=== PATIENT | female | born 2000 | race Caucasian/White ===

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

== ENCOUNTER 2023-08-25 23:25 | Emergency (ER) | payer OTHER ==
--- NOTE | 2023-08-25 23:32 | ED Physician Documentation ---
History of Present Illness - Stated complaint Stated Complaint: - History obtained from History obtained from: Patient - Additonal information Additional information: HPI from patient. Patient c/o LLE focal swelling, redness, tenderness of gradual onset noticed this afternoon, steadily increasing in intensity of pain and area of swelling and redness. Denies h/o similar symptoms. Review of Systems Constitutional: denies: Fever Skin: reports: Lesions Musculoskeletal: reports: Extremity pain. denies: Joint pain, Pain with weight bearing PD PAST MEDICAL HISTORY - Past Medical History Respiratory: Asthma GI: Chronic diarrhea Psych: Depression, Anxiety Derm: Herpes zoster, Eczema - Past Surgical History Past Surgical History: Yes HEENT: Myringotomy (tubes) - Present Medications Home Medications: Ambulatory Orders Medication Instructions Recorded Confirmed Doxycycline [Vibramycin] 100 mg PO BID #14 tablet 08/25/23 hydrOXYzine HCL [Hydroxyzine HCl] 50 mg PO DAILY PRN 08/25/23 08/25/23 - Allergies Allergies/Adverse Reactions: Allergies Allergy/AdvReac Type Severity Reaction Status Date / Time Penicillins Allergy Intermediate Rash Verified 08/25/23 23:37 - Social History Does the pt smoke?: No Smoking Status: Never smoker Does the pt drink ETOH?: Yes Does the pt have substance abuse?: Yes - Immunizations Immunizations are current?: Yes Immunizations: TDAP current <10years - POLST Patient has POLST: No PD ED PE NORMAL - Vitals Vital signs reviewed: Yes - General General: Alert and oriented X 3, No acute distress, Well developed/nourished PD ED PE EXPANDED - Extremities PADMA LE visual: 1 - tenderness (2-3 cm diameter flat erythema, TTP; no fluctuance, no abnormal warmth to touch) Results - Vitals Vitals: Oxygen O2 Source Room air PD Medical Decision Making - ED course Complexity details: considered differential, d/w patient ED course: Atraumatic LLE pain, swelling, and focal erythema. H+P are s/o cellulitis for which she is given 100mg doxycycline PO and prescription provided for one-week course of BID doxycycline. Return precautions reviewed. Departure - Departure Disposition: 01 Home, Self Care Clinical Impression: Cellulitis Condition: Good Instructions: ED Staph Infec Abx Tx Only Prescriptions: Doxycycline [Vibramycin] 100 mg PO BID #14 tablet Comments: You were given the first dose of an antibiotic (doxycycline) in the emergency department and I have electronically submitted a 1-week course of this antibiotic to the [facility] pharmacy in [place]. The cause of the lesion on your leg is not apparent at this time, but, as we discussed, it does have the appearance of cellulitis. Information on cellulitis is contained within this discharge packet. It will likely take 1 or 2 days for the antibiotics have a noticeable effect; the symptoms and the affected area might worsen within those first 1 or 2 days, but should clearly be improving on day three and steadily thereafter. If the symptoms and extent of the lesion is not improving on day 3 or more, contact your primary care provider to arrange for follow-up for reevaluation. Certainly, you can return to the emergency department at any time if you feel the symptoms or extent of the lesion worsen to a concerning extent. Forms: PCP List Discharge Date/Time: 08/26/23 00:14
[2023-08-25 23:43] VITALS: BP 143/86; O2SAT 98
[2023-08-26] MEDS: DOXYCYCLINE 100 MG TABLET PO STA (00:07)
== END 2023-08-26 00:14 | disposition home or self-care (01) ==
LOC: ED 23:25
DX: L03.116 Cellulitis of left lower limb (principal)
CPT/HCPCS: 99282; 99283; A9270

== ENCOUNTER 2024-01-03 14:40 | Emergency (ER) | payer OTHER ==
[2024-01-03 15:53] LABS: HCG UR QUAL NEGATIVE
--- NOTE | 2024-01-03 16:03 | ED Physician Documentation ---
History of Present Illness - Stated complaint Stated Complaint: SOA,SORE THROAT,VOMITING - Chief complaint Chief Complaint: General - Additonal information Additional information: 23-year-old female presents emergency department for sore throat body aches generalized malaise. Patient says she woke up around 5 AM feeling quite unwell sore throat cough and rhinorrhea. She has been having persistent nausea and vomiting no diarrhea she said that she is taken Zofran once with little to no relief and still been having multiple episodes of emesis. Patient says after she starts vomiting she starts hyperventilating which makes her feel shortness of breath she currently now feels no shortness of breath at this breathing comfortably speaking in full sentences without any difficulty. PD PAST MEDICAL HISTORY - Past Medical History Past Medical History: Yes Respiratory: Asthma GI: Chronic diarrhea Psych: Depression, Anxiety, Bipolar disorder Derm: Herpes zoster, Eczema - Past Surgical History Past Surgical History: Yes HEENT: Myringotomy (tubes) - Present Medications Home Medications: Ambulatory Orders Medication Instructions Recorded Confirmed Doxycycline [Vibramycin] 100 mg PO BID #14 tablet 08/25/23 01/03/24 hydrOXYzine HCL [Hydroxyzine HCl] 50 mg PO DAILY PRN 08/25/23 01/03/24 - Allergies Allergies/Adverse Reactions: Allergies Allergy/AdvReac Type Severity Reaction Status Date / Time Penicillins Allergy Intermediate Rash Verified 01/03/24 14:58 - Social History Does the pt smoke?: No Smoking Status: Never smoker Does the pt drink ETOH?: Yes Does the pt have substance abuse?: Yes - Immunizations Immunizations are current?: Yes Immunizations: TDAP current <10years - POLST Patient has POLST: No PD ED PE NORMAL - Vitals Vital signs reviewed: Yes - General General: Alert and oriented X 3, No acute distress, Well developed/nourished - HEENT HEENT: Atraumatic, PERRL - Neck Neck: Supple, no meningeal sign - Cardiac Cardiac: RRR - Respiratory Respiratory: No respiratory distress, Clear bilaterally - Abdomen Abdomen: Normal bowel sounds, Soft, Non tender, No organomegaly - Back Back: No CVA TTP, No spinal TTP - Derm Derm: Normal color, Warm and dry, Other (annular erythema with raised patches to the right and left lateral portion of the neck) - Extremities Extremities: No edema, No calf tenderness / cord - Psych Psych: Normal mood, Normal affect PD ED PE EXPANDED - HEENT HEENT: Nasal congestion, Rhinorrhea, Dry mucous membranes, Swollen tonsils. No: Tonsillar exudate Results - Vitals Vitals: Vital Signs - 24 hr 01/03/24 01/03/24 01/03/24 14:59 17:01 18:09 Temperature 36.7 C Heart Rate 83 102 H 74 Respiratory 18 15 20 Rate Blood Pressure 131/86 H 118/72 116/70 O2 Saturation 98 97 98 01/03/24 18:39 Temperature 36.4 C L Heart Rate 72 Respiratory 15 Rate Blood Pressure 120/68 O2 Saturation 99 Oxygen O2 Source Room air - Labs Labs: Laboratory Tests 01/03/24 01/03/24 01/03/24 15:35 15:38 17:06 WBC 9.1 RBC 4.71 Hgb 14.8 Hct 42.3 MCV 89.8 MCH 31.4 H MCHC 35.0 RDW 12.1 Plt Count 189 MPV 10.2 Neut # (Auto) 8.3 H Lymph # (Auto) 0.4 L [place] # (Auto) 0.4 Eos # (Auto) 0.0 Baso # (Auto) 0.0 Absolute Nucleated RBC 0.00 Nucleated RBC % 0.0 Sodium Potassium Chloride Carbon Dioxide Anion Gap BUN Creatinine Estimated GFR (MDRD) Glucose Calcium Magnesium Total Bilirubin AST ALT Alkaline Phosphatase Total Protein Albumin Globulin Albumin/Globulin Ratio Lipase Urine HCG, Qual NEGATIVE Nasal Adenovirus (PCR) NOT DETECTED Nasal B. parapertussis DNA (PCR) NOT DETECTED Nasal Coronavir 229E PCR NOT DETECTED Nasal Coronavir HKU1 PCR NOT DETECTED Nasal Coronavir NL63 PCR NOT DETECTED Nasal Coronavir OC43 PCR NOT DETECTED Nasal Enterovir/Rhinovir PCR NOT DETECTED Nasal Influenza B PCR NOT DETECTED Nasal Influenza A PCR NOT DETECTED Nasal Parainfluen 1 PCR NOT DETECTED Nasal Parainfluen 2 PCR NOT DETECTED Nasal Parainfluen 3 PCR NOT DETECTED Nasal Parainfluen 4 PCR NOT DETECTED Nasal RSV (PCR) NOT DETECTED Nasal B.pertussis DNA PCR NOT DETECTED Nasal C.pneumoniae (PCR) NOT DETECTED Mohit Human Metapneumo PCR NOT DETECTED Nasal M.pneumoniae (PCR) NOT DETECTED Nasal SARS-CoV-2 (PCR) NOT DETECTED 01/03/24 01/03/24 17:06 17:55 WBC RBC Hgb Hct MCV MCH MCHC RDW Plt Count MPV Neut # (Auto) Lymph # (Auto) [place] # (Auto) Eos # (Auto) Baso # (Auto) Absolute Nucleated RBC Nucleated RBC % Sodium 137 Potassium 3.4 L Chloride 106 Carbon Dioxide 22 Anion Gap 9.0 BUN 14 Creatinine 0.6 Estimated GFR (MDRD) 123 Glucose 113 H Calcium 9.5 Magnesium 1.6 L Total Bilirubin 1.0 AST 12 ALT 11 Alkaline Phosphatase 31 L Total Protein 7.4 Albumin 4.8 Globulin 2.6 Albumin/Globulin Ratio 1.8 Lipase 15 Urine HCG, Qual Nasal Adenovirus (PCR) NOT DETECTED Nasal B. parapertussis DNA (PCR) NOT DETECTED Nasal Coronavir 229E PCR NOT DETECTED Nasal Coronavir HKU1 PCR NOT DETECTED Nasal Coronavir NL63 PCR NOT DETECTED Nasal Coronavir OC43 PCR NOT DETECTED Nasal Enterovir/Rhinovir PCR NOT DETECTED Nasal Influenza B PCR NOT DETECTED Nasal Influenza A PCR NOT DETECTED Nasal Parainfluen 1 PCR NOT DETECTED Nasal Parainfluen 2 PCR NOT DETECTED Nasal Parainfluen 3 PCR NOT DETECTED Nasal Parainfluen 4 PCR NOT DETECTED Nasal RSV (PCR) NOT DETECTED Nasal B.pertussis DNA PCR NOT DETECTED Nasal C.pneumoniae (PCR) NOT DETECTED Mohit Human Metapneumo PCR NOT DETECTED Nasal M.pneumoniae (PCR) NOT DETECTED Nasal SARS-CoV-2 (PCR) NOT DETECTED - Rads (name of study) Chest x-ray Relevant Findings:: Final report received, EMP independent interpretation of test, Other (No acute cardiopulmonary abnormalities) PD Medical Decision Making - ED course ED course: 23-year-old female presents emergency department for nausea vomiting. Patient says she does not have any abdominal pain while she is having vomiting but when she does she says that she has up to 9-10 out of 10 pain with diaphoresis. Initial labs were collected no leukocytosis no anemia mildly suppressed p otassium and magnesium, potassium 3.4, magnesium 1.6. Patient was given a liter of IV fluids as her urine is quite concentrated and she was given IV Compazine as she said that Zofran does not work for her. Patient says that she is feeling significantly better. We did offer to do an abdominal CT scan for further evaluation but patient states that given how well she is now feeling she does not think it is warranted. Respiratory swab was complete which was negative and additional 1 I was worried that maybe did not get enough mucus on so I called lab and they said that they be willing to do a one-time repeat swab and we will credit the patient's chart for the previous swab and the repeat swab so came back negative. hCG also found to be negative. Patient did have a rash to her right neck and she was saying that it was quite itchy it did appear to me to be a viral rash hydroxyzine significantly improved the symptoms. Patient was told to follow-up with primary care provider outpatient she was told if she changes her mind and would like to pursue an abdominal CT if the abdominal pain gets any worse or does not improve to come back to the emergency department for reevaluation. She understands return precautions all questions answered patient is safe for discharge at this time. Departure - Departure Disposition: 01 Home, Self Care Clinical Impression: Nausea & vomiting, Viral rash, Viral syndrome Instructions: ED Viral Syndrome Comments: Thank you for trusting us with your care. We have given you a liter of IV fluids as well as some Compazine to help with your nausea. You can continue to take your Zofran for any nausea vomiting that is happening at home. We offered a CT scan for your abdominal pain but you declined at this time. If you change your mind if your symptoms get any worse feel free to come back into the emerg ency department for further evaluation. Forms: PCP List Discharge Date/Time: 01/03/24 18:41
[2024-01-03] MEDS: PROCHLORPERAZINE 5 MG TABLET PO STA (16:13)
[2024-01-03] MEDS: ACETAMINOPHEN 325 MG TABLET PO STA (16:14)
--- NOTE | 2024-01-03 16:21 | XRAY Report ---
PROCEDURE: Chest 1V INDICATIONS: SOA TECHNIQUE: One view of the chest was acquired. COMPARISON: None. FINDINGS: Surgical changes and devices: None. Lungs and pleura: No pleural effusions or pneumothorax. Lungs are clear. Mediastinum: Mediastinal contours appear normal. Heart size is normal. Bones and chest wall: No suspicious bony lesions. Overlying soft tissues appear unremarkable. IMPRESSION: No acute cardiopulmonary process. Reviewed by: Fidencio Castellanos MD on 01/03/2024 4:20 PM PDT Approved by: Fidencio Castellanos MD on 01/03/2024 4:20 PM PDT Station ID: [id number]
[2024-01-03 16:34] LABS: B. PARAPERTUSSIS- RESP PCR PAN NOT DETECTED; B. PERTUSSIS- RESP PCR PANEL NOT DETECTED; C. PNEUMONIAE- RESP PCR PANEL NOT DETECTED; CORONAVIRUS 229E-RESP PCR NOT DETECTED; CORONAVIRUS HKU1-RESP PCR NOT DETECTED; CORONAVIRUS NL63-RESP PCR NOT DETECTED; CORONAVIRUS OC43-RESP PCR NOT DETECTED; HUMAN METAPNEUMOVIRUS NOT DETECTED; INFLUENZA A- RESP PCR PANEL NOT DETECTED; INFLUENZA B - RESP PCR PANEL NOT DETECTED; M. PNEUMONIAE- RESP PCR PANEL NOT DETECTED; PARAINFLUENZA VIRUS 1 NOT DETECTED; PARAINFLUENZA VIRUS 2 NOT DETECTED; PARAINFLUENZA VIRUS 3 NOT DETECTED; PARAINFLUENZA VIRUS 4 NOT DETECTED; RHINOVIRUS/ENTEROVIRUS NOT DETECTED; RSV- RESP PCR PANEL NOT DETECTED; SARS-CoV-2 -RESP PCR PANEL NOT DETECTED
[2024-01-03] MEDS: SODIUM CHLORIDE 0.9% 1,000 ML IV ONE (17:15)
[2024-01-03 17:16] LABS: BASOPHILS % (AUTO) 0.2 %; EOSINOPHILS % (AUTO) 0.1 %; HCT - HEMATOCRIT 42.3 % (37.0-47.0); HGB - HEMOGLOBIN 14.8 g/dL (12.0-16.0); LYMPHOCYTES # (AUTO) 0.4 10^3/uL (1.5-3.5); LYMPHOCYTES % (AUTO) 4.4 %; MEAN CORPUSCULAR HEMOGLOBIN 31.4 pg (27.0-31.0); MEAN CORPUSCULAR VOLUME 89.8 fL (81.0-99.0); MEAN PLATELET VOLUME 10.2 fL (7.9-10.8); MONOCYTES # (AUTO) 0.4 10^3/uL (0.0-1.0); MONOCYTES % (AUTO) 3.9 %; NEUTROPHILS # (AUTO) 8.3 10^3/uL (1.5-6.6); NEUTROPHILS % (AUTO) 91.3 %; PLT - PLATELET COUNT 189 10^3/uL (130-450); RED BLOOD COUNT 4.71 10^6/uL (4.20-5.40); RED CELL DISTRIBUTION WIDTH 12.1 % (12.0-15.0); WHITE BLOOD COUNT 9.1 x10^3/uL (4.8-10.8)
[2024-01-03] MEDS: PROCHLORPERAZINE 10 MG/2 ML VIAL IVP STA (17:23)
[2024-01-03 17:26] LABS: ALBUMIN 4.8 g/dL (3.2-5.5); ALBUMIN/GLOBULIN RATIO 1.8 (1.0-2.2); CALCIUM 9.5 mg/dL (8.5-10.3); CREATININE 0.6 mg/dL (0.6-1.3); MAGNESIUM 1.6 mg/dL (1.7-2.3); POTASSIUM 3.4 mmol/L (3.5-4.5); TOTAL PROTEIN 7.4 g/dL (6.4-8.9)
[2024-01-03] MEDS ORDERED: iohexoL-300 100 ML VIAL ONE (17:34)
[2024-01-03] MEDS: hydrOXYzine 50 MG/ML VIAL IM STA (18:00)
[2024-01-03 18:41] VITALS: BP 120/68; O2SAT 99
[2024-01-03 19:45] LABS: CORONAVIRUS 229E-RESP PCR NOT DETECTED; CORONAVIRUS HKU1-RESP PCR NOT DETECTED; CORONAVIRUS NL63-RESP PCR NOT DETECTED; CORONAVIRUS OC43-RESP PCR NOT DETECTED; HUMAN METAPNEUMOVIRUS NOT DETECTED; SARS-CoV-2 -RESP PCR PANEL NOT DETECTED
[2024-01-03 19:46] LABS: B. PARAPERTUSSIS- RESP PCR PAN NOT DETECTED; B. PERTUSSIS- RESP PCR PANEL NOT DETECTED; C. PNEUMONIAE- RESP PCR PANEL NOT DETECTED; INFLUENZA A- RESP PCR PANEL NOT DETECTED; INFLUENZA B - RESP PCR PANEL NOT DETECTED; M. PNEUMONIAE- RESP PCR PANEL NOT DETECTED; PARAINFLUENZA VIRUS 1 NOT DETECTED; PARAINFLUENZA VIRUS 2 NOT DETECTED; PARAINFLUENZA VIRUS 3 NOT DETECTED; PARAINFLUENZA VIRUS 4 NOT DETECTED; RHINOVIRUS/ENTEROVIRUS NOT DETECTED; RSV- RESP PCR PANEL NOT DETECTED
== END 2024-01-03 18:41 | disposition home or self-care (01) ==
LOC: ED 14:40
DX: R11.2 Nausea with vomiting, unspecified (principal); R21 Rash and other nonspecific skin eruption; B97.89 Other viral agents as the cause of diseases classified elsewhere; L29.9 Pruritus, unspecified; E83.42 Hypomagnesemia; E87.6 Hypokalemia; Z20.818 Contact with and (suspected) exposure to other bacterial communicable diseases; Z20.822 Contact with and (suspected) exposure to COVID-19; Z20.828 Contact with and (suspected) exposure to other viral communicable diseases; Z32.02 Encounter for pregnancy test, result negative
CPT/HCPCS: 36415; 71045; 80053; 81025; 83690; 83735; 85025; 87633; 96361; 96372; 96374; 99284; A9270